=== PATIENT | male | born 1930 | race Caucasian/White ===

== ENCOUNTER 2017-06-04 17:58 | Outpatient (RCR) | payer MEDICARE | END 2017-06-28 | LOC: OT 17:58 | PROVIDERS: ATTEND Surgery Surgery of the Hand | DX: S52.532D Colles' fracture of left radius, subsequent encounter for closed fracture with routine healing (principal); M25.532 Pain in left wrist; M25.632 Stiffness of left wrist, not elsewhere classified; M25.642 Stiffness of left hand, not elsewhere classified; R53.1 Weakness | CPT/HCPCS: 97022; 97110 ×2; 97165; G8987; G8988; L3906 ==

== ENCOUNTER 2017-07-01 15:24 | Outpatient (RCR) | payer MEDICARE | END 2017-07-28 | LOC: OT 15:24 | PROVIDERS: ATTEND Surgery Surgery of the Hand | DX: S52.532D Colles' fracture of left radius, subsequent encounter for closed fracture with routine healing (principal); M25.532 Pain in left wrist; M25.632 Stiffness of left wrist, not elsewhere classified; M25.642 Stiffness of left hand, not elsewhere classified; R53.1 Weakness ==